=== PATIENT | male | born 1995 | race Caucasian/White ===

== ENCOUNTER → 2018-08-24 | Outpatient (CLI) | payer OTHER ==
--- NOTE | 2018-08-25 07:45 | REP ---
Left knee series: Six views. History: Injury to the left knee. Findings: Six views of the left knee demonstrate no evidence of fracture, subluxation, or joint effusion. Clothing artifact is seen over the distal thigh. Impression: No fracture seen. Electronically Signed by Maco Jon MD 08/25/2018 09:10 A
== END ==
LOC: M LRY 16:31
PROVIDERS: ATTEND Nurse Practitioner Family
DX: S89.92XA Unspecified injury of left lower leg, initial encounter (principal); X58.XXXA Exposure to other specified factors, initial encounter; Y92.89 Other specified places as the place of occurrence of the external cause
CPT/HCPCS: 73564; G0463

== ENCOUNTER → 2018-09-15 | Outpatient (CLI) | payer OTHER ==
--- NOTE | 2018-09-15 19:16 | REP ---
MRI left knee without contrast: History: Knee pain. Evaluate for tear. Lateral and infrapatellar pain. Comparison left knee radiographs August 24, 2018. Technique: Axial, coronal and sagittal imaging planes are utilized for T1, proton density and T2-weighted scans obtain in the usual fashion with and without fat saturation. MRI findings: There is an area of marrow edema in the posterolateral tibial metaphysis. There is another area of subcortical marrow edema in the posteromedial tibial plateau. No overt fracture is seen. Bone contusion is suspected. Anterior and posterior cruciate ligaments have an intact appearance. There is no evidence of medial or lateral collateral ligament disruption. Patellar and quadriceps tendons appear intact. There is no evidence of medial or lateral meniscal tear. No significant joint effusion is seen. No visible Mccord's cyst. Medial and lateral patellar retinacular structures appear intact. Impression: No evidence of internal derangement. Two areas of marrow edema in the proximal tibia one posteromedially and the other posterolaterally consistent with marrow contusion. No overt fracture is seen. Otherwise negative. Electronically Signed by Maco Jon MD 09/15/2018 07:28 P
== END ==
LOC: M RAD 17:42
PROVIDERS: ATTEND Physician Assistant
DX: M25.462 Effusion, left knee (principal)